=== PATIENT | female | born 1950 | race Caucasian/White ===

== ENCOUNTER 2019-05-13 | Emergency (ER) | payer MEDICARE, OTHER ==
[2019-05-13 19:57] LABS: HEMATOCRIT 39.2 % (37.0-47.0); HEMOGLOBIN 13.1 g/dl (12.0-16.0); IMMATURE GRANULOCYTES 0.3 % (0.0-5.0); MEAN CELL VOLUME 94.9 fL CALC (80.0-100.0); MEAN CORPUSCULAR HGB 31.7 pG CALC (26.0-32.0); MEAN CORPUSCULAR HGB CONC 33.4 g/L CALC (32.0-36.0); NEUT# 5.03 thou/uL (2.00-7.15); RED BLOOD COUNT 4.13 mill/uL (4.20-5.60); RED CELL DISTRI WIDTH 12.3 % (11.5-15.5)
[2019-05-13 19:58] LABS: URINE BILIRUBIN - DIPSTICK NEGATIVE (NEGATIVE); URINE BLOOD DIPSTICK LARGE (NEGATIVE); URINE COLOR YELLOW; URINE GLUCOSE - DIPSTICK NEGATIVE (NEGATIVE); URINE KETONE 15 mg/dL (NEGATIVE); URINE PH 5.5 (4.5-8.0); URINE PROTEIN - DIPSTICK 100 mg/dL (NEG-TRACE); URINE SPECIFIC GRAVITY >=1.030; URINE UROBILINOGEN - DIPSTICK 0.2 E.U./dL (0.2)
[2019-05-13 20:06] LABS: URINE LEUK ESTERASE MODERATE (NEGATIVE); URINE NITRITE - DIPSTICK POSITIVE (Negative)
[2019-05-13 20:19] LABS: URINE BACTERIA FEW hpf; URINE RBC 50-100 RBC/hpf (0-5); URINE SQUAMOUS EPITHELIAL CELL FEW EPI/hpf (0-FEW); URINE WBC 50-100 WBC/hpf (0-5)
[2019-05-13 20:22] LABS: ALBUMIN 4.3 g/dL (3.2-5.0); ALKALINE PHOSPHATASE 62 u/l (38-126); AMYLASE 61 u/l (30-110); BUN 22 mg/dL (8-23); BUN/CREATININE RATIO 24 (12-20 (CALC)); CARBON DIOXIDE 24 mmol/l (22-30); CHLORIDE 102 mmol/l (95-108); CREATININE 0.9 mg/dL (0.5-1.0); GFR > 60 ML/MIN (>=60 (CALC)); GFR FOR AFR.AMER. > 60 ML/MIN (>=60 (CALC)); LIPASE 142 u/l (23-300); POTASSIUM 4.4 mmol/l (3.5-5.1); TOTAL PROTEIN 7.7 g/dL (6.3-8.2)
[2019-05-13] MEDS ORDERED: ISOSORB MONO30 MG PO (20:23)
[2019-05-13] MEDS ORDERED: ROSUVASTATIN CA10 MG PO (20:24)
[2019-05-13] MEDS ORDERED: PROPRANOLOL HCL80 M1 PO (20:24)
[2019-05-13 20:31] LABS: ANION GAP 14 (6-22 (CALC)); BILIRUBIN, TOTAL 1.7 mg/dL (0.0-1.4); SGOT/AST 34 u/l (9-36); SODIUM 136 mmol/l (137-146)
[2019-05-13] MEDS ORDERED: BACTRIM DS1 TAB PO (20:36)
== END 2019-05-13 21:10 | disposition home or self-care (01) ==
PROVIDERS: Family Medicine
DX: N39.0 Urinary tract infection, site not specified (principal); B96.20 Unspecified Escherichia coli [E. coli] as the cause of diseases classified elsewhere; Z87.442 Personal history of urinary calculi; Z87.440 Personal history of urinary (tract) infections

== ENCOUNTER 2020-11-06 10:07 | Emergency (ER) | payer MEDICARE, OTHER ==
[~2020-11-06 10:07] MED LIST: BACTRIM DS1 TAB PO; ISOSORB MONO30 MG PO; PROPRANOLOL HCL80 M1 PO; ROSUVASTATIN CA10 MG PO
[2020-11-06] MEDS ORDERED: PROVENTIL0.083 % IN (11:40)
[2020-11-06] MEDS ORDERED: ASPIRIN81 MG PO (11:40)
[2020-11-06] MEDS ORDERED: CLARITIN-D1 TA2 PO (11:41)
[2020-11-06] MEDS ORDERED: CALCIUM500 M5 PO (11:41)
[2020-11-06] MEDS ORDERED: MULTIVITAMIN1 TA1 PO (11:41)
[2020-11-06] MEDS ORDERED: VITAMIN D5000 UNI1 PO (11:42)
[2020-11-06 12:49] VITALS: BP 130/70
== END 2020-11-06 12:50 | disposition home or self-care (01) ==
LOC: ED 10:07
DX: M25.551 Pain in right hip (principal); M19.90 Unspecified osteoarthritis, unspecified site; Z86.73 Personal history of transient ischemic attack (TIA), and cerebral infarction without residual deficits

== ENCOUNTER 2020-11-09 10:07 | Emergency (ER) | payer MEDICARE, OTHER ==
[~2020-11-09 10:07] MED LIST changes: +ASPIRIN81 MG PO; +CALCIUM500 M5 PO; +CLARITIN-D1 TA2 PO; +MULTIVITAMIN1 TA1 PO; +PROVENTIL0.083 % IN; +VITAMIN D5000 UNI1 PO
[2020-11-09 12:44] LABS: HEMATOCRIT 41.8 % (37.0-47.0); HEMOGLOBIN 13.5 g/dl (12.0-16.0); MEAN CELL VOLUME 97.7 fL CALC (80.0-100.0); MEAN CORPUSCULAR HGB 31.5 pG CALC (26.0-32.0); MEAN CORPUSCULAR HGB CONC 32.3 g/dL CAL (32.0-36.0); NEUT# 1.3 thou/uL (2.00-7.15); RED BLOOD COUNT 4.28 mill/uL (4.20-5.60); RED CELL DISTRI WIDTH 12.3 % (11.5-15.5)
[2020-11-09 13:00] LABS: ALBUMIN 3.8 g/dL (3.2-5.0); ALKALINE PHOSPHATASE 62 u/l (38-126); BUN 17 mg/dL (8-23); BUN/CREATININE RATIO 17 (12-20 (CALC)); CHLORIDE 100 mmol/l (95-108); GFR 55 ML/MIN (>=60 (CALC)); GFR FOR AFR.AMER. > 60 ML/MIN (>=60 (CALC)); LIPASE 106 u/l (23-300); POTASSIUM 4.2 mmol/l (3.5-5.1); SGOT/AST 18 u/l (9-36); SODIUM 138 mmol/l (137-146); TOTAL PROTEIN 6.7 g/dL (6.3-8.2)
[2020-11-09 13:01] LABS: ANION GAP 10 (6-22 (CALC)); BILIRUBIN, TOTAL 0.8 mg/dL (0.0-1.4); CARBON DIOXIDE 32 mmol/l (22-30)
[2020-11-09 14:07] VITALS: BP 147/78
== END 2020-11-09 14:19 | disposition home or self-care (01) ==
LOC: ED 10:07
PROVIDERS: Family Medicine
DX: J06.9 Acute upper respiratory infection, unspecified (principal); G25.0 Essential tremor; Z87.440 Personal history of urinary (tract) infections; Z87.442 Personal history of urinary calculi; Z86.73 Personal history of transient ischemic attack (TIA), and cerebral infarction without residual deficits; Z20.822 Contact with and (suspected) exposure to COVID-19

== ENCOUNTER 2021-04-29 11:56 | Emergency (ER) | payer MEDICARE, OTHER ==
[~2021-04-29] VITALS: Ht 160 cm; Wt 53.0 kg
[2021-04-29] MEDS ORDERED: ULTRAM50 MG PO (14:04)
[2021-04-29 14:20] VITALS: BP 141/85
== END 2021-04-29 14:20 | disposition home or self-care (01) ==
LOC: ED 11:56
DX: S63.501A Unspecified sprain of right wrist, initial encounter (principal); G25.0 Essential tremor; X58.XXXA Exposure to other specified factors, initial encounter; Y93.89 Activity, other specified; Y92.009 Unspecified place in unspecified non-institutional (private) residence as the place of occurrence of the external cause; Z86.73 Personal history of transient ischemic attack (TIA), and cerebral infarction without residual deficits

== ENCOUNTER 2022-03-07 12:59 | Emergency (ER) | payer MEDICARE, OTHER ==
[~2022-03-07] VITALS: Ht 160 cm; Wt 53.2 kg
[2022-03-07] VITALS (16 sets, daily range): BP systolic 100–152; BP diastolic 62–85
[~2022-03-07 12:59] MED LIST changes: +ULTRAM50 MG PO
[2022-03-07] MEDS ORDERED: TRAMADOL HYDROC50 M1 PO (16:53)
== END 2022-03-07 18:30 | disposition home or self-care (01) ==
LOC: ED 12:59
PROC: 0RSNXZZ Reposition Right Wrist Joint, External Approach (ICD-10-PCS; principal; 2022-03-07)
DX: S52.501A Unspecified fracture of the lower end of right radius, initial encounter for closed fracture (principal); S00.01XA Abrasion of scalp, initial encounter; S80.11XA Contusion of right lower leg, initial encounter; V86.96XA Unspecified occupant of dirt bike or motor/cross bike injured in nontraffic accident, initial encounter; Y93.I9 Activity, other involving external motion